=== PATIENT | male | born 1965 | race Caucasian/White ===

== ENCOUNTER 2025-02-10 17:46 | Emergency (ER) | payer BC, SELFPAY ==
[2025-02-10 17:51] VITALS: BP 135/89
[2025-02-10 18:04] LABS: % Basophils 0.6 % (0-2); % Eosinophils 1.9 % (0-6); % Immature Granulocytes 0.3 % (0-0.5); % Lymphocytes 29.9 % (20.5-51.1); % Neutrophils 59.3 % (42.2-75.2); Absolute Eosinophils 0.1 10^3/uL (0-0.7); Absolute Lymphocytes 1.9 10^3/uL (1.2-3.4); Absolute Monocytes 0.5 10^3/uL (0.1-0.6); Absolute Neutrophils 3.7 10^3/uL (1.4-6.5); Hematocrit 42.3 % (39.0-52.0); Mean Corp Hgb Conc. 35.5 g/dL (33.0-37.0); Mean Corpuscular Hgb 30.7 pg (27.0-31.0); Mean Corpuscular Volume 86.7 fL (80.0-94.0); Mean Platelet Volume 10.9 fL (7.4-10.4); Nucleated Red Blood Cells % 0 % (-); Platelet Count 190 10^3/uL (130-400); Red Blood Cell Count 4.88 10^6/uL (4.70-6.10); Red Cell Dist. Width 12.7 % (11.5-14.5); White Blood Cell Count 6.3 10^3/uL (4.8-10.8)
[2025-02-10 18:30] LABS: Troponin I < 0.012 ng/ml
[2025-02-10 18:33] LABS: ALT (SGPT) 29 U/L (0-50); AST (SGOT) 26 U/L (17-59); Albumin 4.7 g/dl (3.5-5.0); Alkaline Phosphatase 53 U/L (38-126); Blood Urea Nitrogen 19 mg/dl (9-20); Calcium 9.6 mg/dl (8.4-10.2); Carbon Dioxide 22 mmol/L (22-30); Chloride 107 mmol/L (98-107); Glucose 93 mg/dl (70-99); Potassium 4.3 mmol/L (3.5-5.1); Sodium 137 mmol/L (135-145); Total Bilirubin 0.9 mg/dl (0.2-1.3); Total Protein 7.3 g/dl (6.3-8.2); eGFR > 60.00
--- NOTE | 2025-02-10 19:07 | ED.GENMED ---
History of Present Illness
General
Chief Complaint: Chest Pain
Source: patient
Exam Limitations: none
Time Seen by Provider: 02/10/25 18:45
History of Present Illness
History of Present Illness:
60yoM with no significant past medical history presenting with his for evaluation of twitching in his upper abdomen. Symptoms have been intermittent over the past 4 days. He reports episodes of twitching that is localized to the right upper
abdomen/lower chest. He denies any pain during the episodes but is feels like his abdomen is pulsating. Symptoms seem to be worse if he leans forward. He is otherwise asymptomatic and denies any shortness of breath.
Phy Exam
General Physical Exam
General Presentation: well appearing and no apparent distress
General Skin: warm and dry
General Habitus: normal
General Mental: alert
ENT Exam
ENT Exam: normocephalic
Cardiovascular Exam
Cardiovascular Exam: regular rate/rhythm
Pulmonary Exam
Pulmonary Exam: lungs clear, no respiratory distress, no rales, no crackles, no rhonchi, no wheezing and other (One episode of twitching was observed during exam which appears to be a superficial muscle spasm in the R lower chest)
Gastrointestinal Exam
Gastrointestinal Exam: non tender, soft and non distended
Neurological Exam
Neurological Exam: alert
Solomon Coma Scale
Eye Opening: Spontaneous
Verbal Response: Oriented
Motor Response: Obeys Commands
GCS Total Score: 15
Skin Exam
Skin Exam: normal color and warm/dry
Psychiatric Exam
Psychiatric Exam: normal mood/affect
Scores
Heart Score for Chest Pain Patients
STEMI patient?: No
History: Slightly or Non-Suspicious
ECG: Normal
Age: >45 - <65 years
Risk Factors: No Risk Factors
Troponin: </= Normal Limit
Heart Score for Chest Pain Patients: 1
Heart Score Risk: 2.5% MACE over next 6 weeks
Course
Orders/Labs/Results
Orders:
Orders
02/10/25 17:47
EKG [Electrocardiogram (*1)] Urgent
Reason for Study: Chest Pain
EKG- Treatment ONCE
02/10/25 17:59
Complete Blood Count/With Diff Urgent
Comprehensive Metabolic Panel Urgent
TSH Urgent
Comment: ADD ON
Troponin I Urgent
02/10/25 19:09
Add On- LAB Urgent
Tests Added?: TSH
02/10/25 19:21
CR Chest - 2 Views Urgent
Comment:
Reason For Exam: R lower chest discomfort
02/10/25 19:26
CT Abd/pelvis W Iv Cont Urgent
Comment:
Reason For Exam: pulsating in abdomen
Abnormal Lab Results
02/10/25
17:59
MPV 10.9 H fL
(7.4-10.4)
02/10/25 17:59
02/10/25 17:59
Vital Signs
Initial and Last Documented VS:
Initial Vital Signs
Temp Pulse Resp BP Pulse Ox
98.2 F 71 16 135/89 97
02/10/25 17:51 02/10/25 17:51 02/10/25 17:51 02/10/25 17:51 02/10/25 17:51
Last Documented Vital Signs
Temp Pulse Resp BP Pulse Ox
98.1 F 62 18 120/75 97
02/10/25 19:09 02/10/25 20:59 02/10/25 19:09 02/10/25 20:59 02/10/25 20:59
MDM/Problems Addressed
Differential Diagnosis Includes:
60yoM here with intermittent twitching in R lower chest/upper abd x 4 days. Feels like a pulsating in his abdomen. VSS. I was able to observe one of these episodes during exam and it appears to be a superficial muscle spasm. He denies pain and there
is no abdominal or chest wall tenderness. Patient worried about an aneurysm which I have a very low suspicion of.
Initial ED plan: Labs obtained in triage. EKG shows NSR without ischemic changes and troponin WNL. Will obtain CXR and CT abdomen for completeness.
*EKG
Interpreted by ED Provider?: Yes
EKG Intrepretation Date: 02/10/25
Heart Rate: 69
Rate: normal
Rhythm: sinus
[place]: normal axis
Interval: normal interval
QRS Pattern: normal QRS
Ischemia: no ischemia
*Critical Care Note
Total Time (30-74mins, 75-104mins- exclusive of procedures): Not Applicable
Update Note
Update Note:
Chest x-ray is clear. CT abdomen is negative for acute findings. Specifically, abdominal aorta is normal in caliber without evidence of aneurysm. Patient provided with reassurance. Advised to follow-up with PCP. Patient discharged in stable
condition.
ED Attending Note
-
Portions of this chart may have been created with voice recognition software.� Occasional wrong word or��sound alike� substitutions may have occurred due to the inherent limitations of voice recognition software.
Discharge Plan
Departure
Patient Disposition: Home (Routine Discharge)
Date of Disposition: 02/10/25
Time of Disposition: 20:36
Patient with high blood pressure during this ER visit?: No
Discharge Problem:
Muscle twitching
Instructions: Muscle spasm - ED discharge instructions
Referrals:
Eyal Rudolph, DO [Family Provider, Family Practice]
Activity Restrictions/Additional Instructions:
Please follow-up with your family doctor next week. Return to the ER with any new or worsening symptoms.
Interventions
Interventions:
*Risk Screen - Suicide Last Done: 02/10/25 17:51
*General Assessment Last Done: 02/10/25 21:00
*Neglect/Abuse Screening Last Done: 02/10/25 17:51
*ED- Fall Risk Assessment Last Done: 02/10/25 21:00
*ED COVID-19 Vaccine History Last Done: 02/10/25 21:00
*Nursing Disposition Last Done: 02/10/25 21:00
ED- Cardiac Assessment Last Done: 02/10/25 19:09
Discharge Date and Time
Discharge Date/Time: 02/10/25 21:01
Print Language: ICELANDIC
[2025-02-10 19:09] VITALS: BP 118/78; BMI 28.4
[2025-02-10 20:19] LABS: TSH 3.28 uIU/ml (0.47-4.68)
[2025-02-10 20:59] VITALS: BP 120/75
== END 2025-02-10 21:01 | disposition home or self-care (01) ==
LOC: EMR 17:46
PROVIDERS: EMERGENCY PHYSICIAN Emergency Medicine; FAMILY PHYSICIAN Family Medicine
DX: R25.3 Fasciculation (principal)
CPT/HCPCS: 99284; 71046; 74177; 80053; 84443; 84484; 85025; 93005; Q9967